=== PATIENT | female | born 1970 | race Caucasian/White ===

== ENCOUNTER → 2017-03-22 | Outpatient (CLI) | payer BC | LOC: MAMO 03-21 13:20 | DX: Z12.31 Encounter for screening mammogram for malignant neoplasm of breast (principal) | CPT/HCPCS: G0202 ==

== ENCOUNTER → 2021-06-01 | Outpatient (CLI) | payer OTHER | LOC: EXRD 10:55 | DX: M77.41 Metatarsalgia, right foot (principal); M19.071 Primary osteoarthritis, right ankle and foot; Z15.89 Genetic susceptibility to other disease | CPT/HCPCS: 73630 ==

== ENCOUNTER → 2021-09-19 | Outpatient (CLI) | payer OTHER | LOC: KOH-I 09-14 14:30 | DX: S43.421A Sprain of right rotator cuff capsule, initial encounter (principal); M19.011 Primary osteoarthritis, right shoulder | CPT/HCPCS: 73221 ==